=== PATIENT | male | born 1985 | race Two or more races ===

== ENCOUNTER 2023-06-22 22:52 | Observation (INO) ==
[2023-06-22 23:49] LABS: BASOPHILS % (AUTO) 0.5 % (0.2-1.0); EOSINOPHILS # (AUTO) 0.2 x10^3/uL (0.0-0.2); LYMPHOCYTES # (AUTO) 1.1 X10^3/uL (1.3-2.9)
[2023-06-22 23:57] LABS: ALBUMIN 3.8 g/dL (3.4-5.0); BLOOD UREA NITROGEN 7 mg/dL (7-18); CHLORIDE 96 mmol/L (98-107); COR NA(FOR HYPERGLY) 131 mmol/L (136-145); GLUCOSE 210 mg/dL (65-99); LIPASE 46 Units/L (16-77); POTASSIUM 3.9 mmol/L (3.5-5.1); SODIUM 128 mmol/L (136-145); eGFR NON BLACK RACES > 60 (>60)
[2023-06-23 00:12] LABS: BASOPHILS # (AUTO) 0.1 X10^3/uL (0.0-0.1); EOSINOPHILS % (AUTO) 1.6 % (0.9-2.9); HEMATOCRIT 41.2 % (42.0-54.0); HEMOGLOBIN 14.7 g/dL (13.5-18.0); LYMPHOCYTES % (AUTO) 10.4 % (21.0-51.0); MEAN CORPUSCULAR HEMOGLOBIN 32.6 pg (27.0-34.0); MEAN CORPUSCULAR HGB CONC 38.2 g/dL (33.0-35.0); MEAN CORPUSCULAR VOLUME 85.4 fL (80.0-100.0); MEAN PLATELET VOLUME 8.1 fL (7.4-11.0); MONOCYTES # (AUTO) 0.5 x10^3/uL (0.3-0.8); MONOCYTES % (AUTO) 4.4 % (0.0-13.0); NEUTROPHILS # (AUTO) 9.2 x10^3/uL (2.2-4.8); NEUTROPHILS % (AUTO) 83.1 % (42.0-75.0); PLATELET COUNT 298 X10^3/uL (150.0-450.0); RED BLOOD COUNT 4.82 X10^6/uL (4.7-6.0); RED CELL DISTRIBUTION WIDTH 12.8 % (11.6-16.5); WHITE BLOOD COUNT 11.1 X10^3/uL (3.6-10.0)
[2023-06-23 00:46] LABS: CARBON DIOXIDE 19.5 mmol/L (21-32)
[2023-06-23 00:47] LABS: CREATININE 0.27 mg/dL (0.70-1.30)
[2023-06-23 00:48] LABS: CALCIUM 8.6 mg/dL (8.5-10.1)
[2023-06-23 00:49] LABS: ALANINE AMINOTRANSFERASE 12 Units/L (12-78); ALKALINE PHOSPHATASE 107 Units/L (46-116); ASPARTATE AMINO TRANSFERASE < 6 Units/L (15-37)
[2023-06-23 00:50] LABS: TOTAL PROTEIN 8.7 g/dL (6.4-8.2)
[2023-06-23] MEDS ORDERED: TORADOL 30 MG VIAL IVP STA (00:50)
[2023-06-23] MEDS ORDERED: ZOFRAN INJ 4 MG VIAL IVP ONE (00:53)
--- NOTE | 2023-06-23 00:53 | DR.EXTPAIN ---
HPI Time seen Time Seen by Provider: 06/23/23 00:50 PCP Primary Care Physician: NONE HPI Comment HPI Comment: began this morning ,sudden in onset localzed to right upper quadrant associated with nausea.Not has had similar problem before .Has had no fever or chills .not sure whether it is related to food Complaint/Symptoms Chief Complaint Doctor Comments: abdominal pain Chief Complaint:: PT STATES" HE WOKE UP THIS MORNING AND HIS EPIGASTIC AREA WAS HURTING 8/10" HE STATES IT RADIATES UNDER HIS RIGHT RIB. Self Treatment fo Chief Complaint: NONE COVID-19 Coronavirus risk:travel/contact w/high risk person: No Has patient experienced Coronavirus symptoms: No Nurses notes reviewed Nurses Notes Review: Yes Source History Provided: Patient Mode of arrival Mode of Arrival: Ambulatory Timing Onset of Chief Complaint: 06/22/23 Context History of: None PMH PMH Past Medical History: Yes Past Medical History Comment: "WOUNDS" Past Surgical History: No Family History History of Family Medical Conditions: No Social History Type of Tobacco Use: None Alcohol Use: DAILY Do you use any recreational Drugs:: No Lives With: Family Lives Where: Home Travel Risk Coronavirus risk:travel/contact w/high risk person: No Has patient experienced Coronavirus symptoms: No Infectious screening In the last 2 months have you had wt loss of >10#?: NO Have you had fever, night sweats or hemotysis?: No Have you traveled outside the country in the last 6 months?: No Isolation: Standard ROS Review of Systems Constitutional: No Symptoms Reported Eyes: No Symptoms Reported ENTM: No Symptoms Reported Respiratoy: No Symptoms Reported Cardiovascular: No Symptoms Reported Gastrointestinal/Abdominal: Abdominal Pain and Nausea Genitourinary: No Symptoms Reported Neurological: No Symptoms Reported Musculoskeletal: No Symptoms Reported Integumentary: No Symptoms Reported PE Vital Signs Vitals: Vital Signs Temperature 98.2 F Pulse Rate 90 Respiratory Rate 20 Respiratory Rate 20 Respiratory Rate 20 Blood Pressure 131/80 O2 Sat by Pulse Oximetry 96 General Limitations: Language Barrier General Appearance: Alert, Anxious and In Distress Head Head Exam: Normal Inspection, Atraumatic and Normocephalic Eyes Eye exam: Normal Appearance and PERRL ENT ENT Exam: Normal Exam, Normal Oropharynx and Mucous Membranes Moist Neck Neck Exam: Normal Inspection and Full ROM Chest Chest Inspection: Normal Inspection and Symmetric Chest Wall Rise Respiratory Respiratory Exam: Normal Lung Sounds Bilat Respiratory Exam: Bilateral: Clear to Auscultation Cardiovascular Cardiovascular Exam: +S1 and +S2 Abdominal Exam Abdominal Exam: Normal Bowel Sounds, Soft and Tenderness Abdominal Tenderness: RUQ and Other (midabdomen) Neurological Neurological Exam: Alert Skin Skin Exam: Normal Color MDM Differential Diagnosis Differential Diagnosis: Other (right upper quadrant pain) COURSE Treatment Treatment: cbc.cmp.lipase,ct abdomen and pelvis ,IV toradol,iv zofran Reevaluation 1st: Unchanged ROR Labs Reviewed Laboratory Results Reviewed?: Yes 06/22/23 23:36 06/22/23 23:36 Laboratory: WBC 11.1 X10^3/uL (3.6-10.0) H 06/22/23 23:36 RBC 4.82 X10^6/uL (4.7-6.0) 06/22/23 23:36 Hgb 14.7 g/dL (13.5-18.0) 06/22/23 23:36 Hct 41.2 % (42.0-54.0) L 06/22/23 23:36 MCV 85.4 fL (80.0-100.0) 06/22/23 23:36 MCH 32.6 pg (27.0-34.0) 06/22/23 23:36 MCHC 38.2 g/dL (33.0-35.0) H 06/22/23 23:36 RDW 12.8 % (11.6-16.5) 06/22/23 23:36 Plt Count 298 X10^3/uL (150.0-450.0) 06/22/23 23:36 MPV 8.1 fL (7.4-11.0) 06/22/23 23:36 Neut % (Auto) 83.1 % (42.0-75.0) H 06/22/23 23:36 Lymph % (Auto) 10.4 % (21.0-51.0) L 06/22/23 23:36 [place] % (Auto) 4.4 % (0.0-13.0) 06/22/23 23:36 Eos % (Auto) 1.6 % (0.9-2.9) 06/22/23 23:36 Baso % (Auto) 0.5 % (0.2-1.0) 06/22/23 23:36 Neut # (Auto) 9.2 x10^3/uL (2.2-4.8) H 06/22/23 23:36 Lymph # (Auto) 1.1 X10^3/uL (1.3-2.9) L 06/22/23 23:36 [place] # (Auto) 0.5 x10^3/uL (0.3-0.8) 06/22/23 23:36 Eos # (Auto) 0.2 x10^3/uL (0.0-0.2) 06/22/23 23:36 Baso # (Auto) 0.1 X10^3/uL (0.0-0.1) 06/22/23 23:36 Absolute Nucleated RBC 0.1 /100WBC 06/22/23 23:36 Sodium 128 mmol/L (136-145) L 06/22/23 23:36 Corrected Sodium 131 mmol/L (136-145) L 06/22/23 23:36 Potassium 3.9 mmol/L (3.5-5.1) 06/22/23 23:36 Chloride 96 mmol/L (98-107) L 06/22/23 23:36 Carbon Dioxide 19.5 mmol/L (21-32) L 06/22/23 23:36 BUN 7 mg/dL (7-18) 06/22/23 23:36 Creatinine 0.27 mg/dL (0.70-1.30) L 06/22/23 23:36 Est GFR (MDRD) Af Amer > 60 (>60) 06/22/23 23:36 Est GFR (MDRD) Non-Af > 60 (>60) 06/22/23 23:36 Glucose 210 mg/dL (65-99) H 06/22/23 23:36 Hemoglobin A1c 7.6 % 06/22/23 23:36 Calcium 8.6 mg/dL (8.5-10.1) 06/22/23 23:36 Corrected Calcium TNP 06/22/23 23:36 Total Bilirubin 1.40 mg/dL (0.2-1.0) H 06/22/23 23:36 Direct Bilirubin < 0.05 mg/dL (0-0.2) 06/22/23 23:36 AST < 6 Units/L (15-37) L 06/22/23 23:36 ALT 12 Units/L (12-78) 06/22/23 23:36 Alkaline Phosphatase 107 Units/L (46-116) 06/22/23 23:36 Total Protein 8.7 g/dL (6.4-8.2) H 06/22/23 23:36 Albumin 3.8 g/dL (3.4-5.0) 06/22/23 23:36 Globulin 4.9 g/dL (2.5-4.5) H 06/22/23 23:36 Albumin/Globulin Ratio 0.8 Ratio (1.1-2.1) L 06/22/23 23:36 Triglycerides 1799 mg/dL (0-150) H 06/22/23 23:36 Cholesterol 220 mg/dL (0-200) H 06/22/23 23:36 LDL Cholesterol, Calc -160 mg/dL (0-100) L 06/22/23 23:36 HDL Cholesterol 20 mg/dL (40-60) L 06/22/23 23:36 Cholesterol/HDL Ratio 11.0 (0.0-5.0) H 06/22/23 23:36 Lipase 46 Units/L (16-77) 06/22/23 23:36 Opioid Opioid Risk Tool Age (Fabricio box if 16-45): Yes History of Preadolescent Sexual Abuse: No Total: 1 Total Score Risk Category: Low Risk Copyright: Joshua CORNEJO predicting aberrant behaviors Discharge Plan Diagnosis Discharge Problem: Acute pancreatitis, Hypertriglyceridemia, DM type 2 (diabetes mellitus, type 2) Discharge Plan Patient Disposition: ADMITTED INPATIENT Condition: Stable Prescriptions: No Action [facility] Concerns: Post Hospitalization: new medications and changes needed to prevent readmission or further decline. Pt educated and given instructions on all concerns. Plan of Treatment: Continue with present treatment and follow up plan. Pt is to keep follow up appointment as instructed and take medications as ordered. Orders to Discharge Patient Discharge Orders: Transfer (Routine); Ordered 06/23/23 Ordered By: Jaswant Burns Follow ups/Referrals Follow ups/Referrals: [facility],None [Primary Care Provider] - 3 days Instructions Instructions: Acute Pancreatitis, [id number] ADDITIONAL NOTES Additional Notes Additional Notes: ct scan inflammed pancrease,TG 1799.A1C 7.6.spoke with Dr Mendez agreed to ahve patient admitted for the maangement of acute pancreatitis
[2023-06-23] MEDS ORDERED: NS 100 ML IV 100 ML ONE (00:54)
[2023-06-23] MEDS ORDERED: OMNIPAQUE 350 mg/mL 100 mL BTL 100 ML ONE (00:54)
[2023-06-23] MEDS ORDERED: TORADOL 30 MG VIAL ONE ×2 (01:39→06:51)
[2023-06-23] MEDS ORDERED: ZOFRAN INJ 4 MG VIAL ONE (01:39)
--- NOTE | 2023-06-23 02:05 | CT ---
EXAM:ABDCMEN/PELVIS WITH CONHISTORY:RUQ PAIN; PT STATES" HE WOKE UP THIS MORNING AND HIS EPIGASTIC AREA WAS HURTING 8/10" HE STATES IT RADIATES UNDER HIS RIGHT RIB. ; 350 OMNIPAQUE, 100 MLCOMPARISON:NoneTECHNIQUE:Multiple axial images of the abdomen and pelvis were obtained from the lung bases to the pubic symphysis after the administration of IV contrast. Dose reduction techniques including Automated Exposure Control (AEC) and adjustment of mA and kV were utilized.FINDINGS:Included lung bases show scattered atelectasis/scarring. Liver, gallbladder, spleen, adrenal glands, kidneys show no acute appearing finding. There is stranding surrounding the pancreas head and proximal body and adjacent SMV. The SMV and portal vein appear patent. No bowel obstruction or overt inflammation. Normal appendix. Urinary bladder grossly unremarkable. No visible ascites, lymphadenopathy, or pneumoperitoneum. No acute osseous finding. Chronic L5 pars defects.IMPRESSION:Evidence of acute pancreatitis. No suggestion of fluid collection or necrosis on this exam.THIS IS AN ELECTRONICALLY VERIFIED FINAL REPORT06/23/2023 2:02 AM - Electronically signed by David Vogt MD
[2023-06-23] MEDS ORDERED: NS 1,000 ML IV 1,000 ML IV ONE (02:22)
[2023-06-23] MEDS ORDERED: NS 1,000 ML IV 1,000 ML ONE ×2 (02:25→04:25)
[2023-06-23] MEDS ORDERED: NS 1,000 ML IV 1,000 ML IV SCH ×2 (05:00→08:14)
[2023-06-23] MEDS ORDERED: TORADOL 30 MG VIAL IVP ONE (06:51)
[2023-06-23] MEDS ORDERED: TORADOL 30 MG VIAL IVP PRN (08:14)
[2023-06-23] MEDS ORDERED: ZOFRAN INJ 4 MG VIAL IVP PRN (08:14)
[2023-06-23] MEDS: TRICOR TAB 145 MG PO SCH (08:59)
[2023-06-23 09:54] VITALS: BMI 33.5
[2023-06-23] MEDS ORDERED: NovoLIN R (or HumuLIN R) SUBCUT PRN (11:03)
[2023-06-23] MEDS ORDERED: NORCO 7.5/325 MG TAB PO PRN (11:17)
[2023-06-23] MEDS ORDERED: MORPHINE SULFATE INJ 2 MG INJ IVP PRN (11:19)
[2023-06-23] MEDS: MORPHINE SULFATE INJ 2 MG INJ IVP PRN ×2 (15:02→19:43)
[2023-06-23] MEDS: NS 1,000 ML IV 1,000 ML IV SCH ×2 (15:02→22:28)
--- NOTE | 2023-06-23 18:37 | DR.H&P ---
H&P History & Physical for Day of: H&P Date: 06/23/23 Chief Complaint Chief Complaint: Epigastric pain Allergies Allergies Allergy/AdvReac Type Severity Reaction Status Date / Time No Known Allergies Allergy Verified 06/23/23 04:19 History of Present Illness History of Present Illness: This is a pleasant 37-year-old who does not speak Japanese. We do have a clamp remover present. The patient states when he woke yesterday morning was having epigastric pain. Got worse through the day and rating to the right upper quadrant. He later can [facility] emergency department and workup there showed that he had pancreatitis by CT scan. His lipase is normal and we do not have amylase. He is tender to epigastrium and his triglycerides were over 1500. He likely is tender secondary to hypertriglyceridemia. 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 We started him on Tricor 145 mg in the emergency department and giving him IV fluid and pain control at this time. Repeat routine labs and amylase and lipase in the morning. Social History Does patient currently use any type of tobacco product: No Have you used tobacco products in the last 12 months: No Type of Tobacco Use: None Does any household member use tobacco: No Alcohol Use: Occasionally Drug Use: None Medications Home Medications: Home Medications Medication Instructions Recorded Confirmed Type NK 06/23/23 06/23/23 History Labs 06/22/23 23:36 06/22/23 23:36 Labs: Laboratory WBC 11.1 X10^3/uL (3.6-10.0) H 06/22/23 23:36 RBC 4.82 X10^6/uL (4.7-6.0) 06/22/23 23:36 Hgb 14.7 g/dL (13.5-18.0) 06/22/23 23:36 Hct 41.2 % (42.0-54.0) L 06/22/23 23:36 MCV 85.4 fL (80.0-100.0) 06/22/23 23:36 MCH 32.6 pg (27.0-34.0) 06/22/23 23:36 MCHC 38.2 g/dL (33.0-35.0) H 06/22/23 23:36 RDW 12.8 % (11.6-16.5) 06/22/23 23:36 Plt Count 298 X10^3/uL (150.0-450.0) 06/22/23 23:36 MPV 8.1 fL (7.4-11.0) 06/22/23 23:36 Neut % (Auto) 83.1 % (42.0-75.0) H 06/22/23 23:36 Lymph % (Auto) 10.4 % (21.0-51.0) L 06/22/23 23:36 [place] % (Auto) 4.4 % (0.0-13.0) 06/22/23 23:36 Eos % (Auto) 1.6 % (0.9-2.9) 06/22/23 23:36 Baso % (Auto) 0.5 % (0.2-1.0) 06/22/23 23:36 Neut # (Auto) 9.2 x10^3/uL (2.2-4.8) H 06/22/23 23:36 Lymph # (Auto) 1.1 X10^3/uL (1.3-2.9) L 06/22/23 23:36 [place] # (Auto) 0.5 x10^3/uL (0.3-0.8) 06/22/23 23:36 Eos # (Auto) 0.2 x10^3/uL (0.0-0.2) 06/22/23 23:36 Baso # (Auto) 0.1 X10^3/uL (0.0-0.1) 06/22/23 23:36 Absolute Nucleated RBC 0.1 /100WBC 06/22/23 23:36 Sodium 128 mmol/L (136-145) L 06/22/23 23:36 Corrected Sodium 131 mmol/L (136-145) L 06/22/23 23:36 Potassium 3.9 mmol/L (3.5-5.1) 06/22/23 23:36 Chloride 96 mmol/L (98-107) L 06/22/23 23:36 Carbon Dioxide 19.5 mmol/L (21-32) L 06/22/23 23:36 BUN 7 mg/dL (7-18) 06/22/23 23:36 Creatinine 0.27 mg/dL (0.70-1.30) L 06/22/23 23:36 Est GFR (MDRD) Af Amer > 60 (>60) 06/22/23 23:36 Est GFR (MDRD) Non-Af > 60 (>60) 06/22/23 23:36 Glucose 210 mg/dL (65-99) H 06/22/23 23:36 POC Glucose (mg/dL) 118 mg/dL (65-99) H 06/23/23 16:45 Hemoglobin A1c 7.6 % 06/22/23 23:36 Calcium 8.6 mg/dL (8.5-10.1) 06/22/23 23:36 Corrected Calcium TNP 06/22/23 23:36 Total Bilirubin 1.40 mg/dL (0.2-1.0) H 06/22/23 23:36 Direct Bilirubin < 0.05 mg/dL (0-0.2) 06/22/23 23:36 AST < 6 Units/L (15-37) L 06/22/23 23:36 ALT 12 Units/L (12-78) 06/22/23 23:36 Alkaline Phosphatase 107 Units/L (46-116) 06/22/23 23:36 Total Protein 8.7 g/dL (6.4-8.2) H 06/22/23 23:36 Albumin 3.8 g/dL (3.4-5.0) 06/22/23 23:36 Globulin 4.9 g/dL (2.5-4.5) H 06/22/23 23:36 Albumin/Globulin Ratio 0.8 Ratio (1.1-2.1) L 06/22/23 23:36 Triglycerides 1799 mg/dL (0-150) H 06/22/23 23:36 Cholesterol 220 mg/dL (0-200) H 06/22/23 23:36 LDL Cholesterol, Calc -160 mg/dL (0-100) L 06/22/23 23:36 HDL Cholesterol 20 mg/dL (40-60) L 06/22/23 23:36 Cholesterol/HDL Ratio 11.0 (0.0-5.0) H 06/22/23 23:36 Lipase 46 Units/L (16-77) 06/22/23 23:36 Review of Systems Constitutional: No Symptoms Reported Eyes: No Symptoms Reported ENT: No Symptoms Reported Respiratory: No Symptoms Reported Cardiovascular: No Symptoms Reported Gastrointestinal: Abdominal Pain Genitourinary: No Symptoms Reported Musculoskeletal: No Symptoms Reported Skin: No Symptoms Reported Neurological: No Symptoms Reported Physical Exam Vital Signs: Vital Signs Temperature 98.6 F Temperature 97.8 F Pulse Rate [Left] 73 Pulse Rate [Left] 68 Respiratory Rate 18 Respiratory Rate 18 Respiratory Rate 18 Respiratory Rate 18 Respiratory Rate 18 Respiratory Rate 18 Blood Pressure [Right Arm] 153/78 Blood Pressure [Right Arm] 131/70 O2 Sat by Pulse Oximetry 96 O2 Sat by Pulse Oximetry 97 Oriented: Normal, Time, Person and Place Eyes: Normal Ear: Normal Nose: Normal Respiratory: Clear Throughout Cardiovascular: Normal Auscultation: Bowel Sounds: Normal Palpation: Normal Tenderness: RUQ and Epigastric Skin: Normal Musculoskeletal: Normal Psychiatric: Normal Mood Description: Calm Affect: Normal Speech Pattern: Clear Assessment/Plan (1) Acute pancreatitis: Status: Acute Plan: N.p.o., IV fluid, pain control and starting Tricor since the patient's triglycerides are over 1500. Repeat routine labs and amylase and lipase tomorrow morning. (2) Hypertriglyceridemia: Status: Acute Plan: Tricor 145 mg daily. (3) DM type 2 (diabetes mellitus, type 2): Status: Acute Plan: The patient is newly diagnosed diabetic coming in. We will start him on insulin per sliding scale. Review H&P Reviewed: Yes Patient was examined?: Yes
[2023-06-23] MEDS ORDERED: SNACK - Diabetic Appropriate PO SCH (20:00)
[2023-06-23 20:19] VITALS: RESP 20
[2023-06-24] MEDS: NS 1,000 ML IV 1,000 ML IV SCH (05:50)
[2023-06-24 06:20] LABS: BASOPHILS % (AUTO) 0.2 % (0.2-1.0); EOSINOPHILS # (AUTO) 0.1 x10^3/uL (0.0-0.2); EOSINOPHILS % (AUTO) 1.9 % (0.9-2.9); HEMATOCRIT 33.8 % (42.0-54.0); HEMOGLOBIN 11.8 g/dL (13.5-18.0); LYMPHOCYTES # (AUTO) 1.4 X10^3/uL (1.3-2.9); LYMPHOCYTES % (AUTO) 19.6 % (21.0-51.0); MEAN CORPUSCULAR VOLUME 85.9 fL (80.0-100.0); MEAN PLATELET VOLUME 8.1 fL (7.4-11.0); MONOCYTES # (AUTO) 0.5 x10^3/uL (0.3-0.8); MONOCYTES % (AUTO) 6.7 % (0.0-13.0); NEUTROPHILS # (AUTO) 5.1 x10^3/uL (2.2-4.8); NEUTROPHILS % (AUTO) 71.6 % (42.0-75.0); PLATELET COUNT 188 X10^3/uL (150.0-450.0); RED BLOOD COUNT 3.94 X10^6/uL (4.7-6.0); WHITE BLOOD COUNT 7.1 X10^3/uL (3.6-10.0)
[2023-06-24 06:35] LABS: ALANINE AMINOTRANSFERASE 29 Units/L (12-78); ALKALINE PHOSPHATASE 71 Units/L (46-116); AMYLASE 42 Units/L (25-115); ASPARTATE AMINO TRANSFERASE 12 Units/L (15-37); BLOOD UREA NITROGEN 6 mg/dL (7-18); CALCIUM 7.8 mg/dL (8.5-10.1); CARBON DIOXIDE 25.3 mmol/L (21-32); CHLORIDE 104 mmol/L (98-107); COR CA(FOR HYPOALB) 8.6 mg/dL (8.5-10.1); CREATININE 0.79 mg/dL (0.70-1.30); GLUCOSE 104 mg/dL (65-99); LIPASE 31 Units/L (16-77); POTASSIUM 3.6 mmol/L (3.5-5.1); SODIUM 138 mmol/L (136-145); TOTAL PROTEIN 7.1 g/dL (6.4-8.2); eGFR NON BLACK RACES > 60 (>60)
[2023-06-24] MEDS ORDERED: CONSULT PHARMACY - POTASSIUM & MAGNESIUM XX SCH (07:00)
[2023-06-24] MEDS: TRICOR TAB 145 MG PO SCH (08:57)
[2023-06-24] MEDS ORDERED: K-DUR TAB 20 MEQ PO SCH (09:00)
[2023-06-24 13:15] VITALS: BP 128/81; PULSE 60; TEMP 97.7; O2SAT 97
== END 2023-06-24 14:15 | disposition home or self-care (01) ==
LOC: MED/SURG 22:56 → ER 22:56 → MED/SURG 06-23 07:58
PROVIDERS: ADMIT Family Medicine; ATTEND Family Medicine
DX: Z59.87 Material hardship due to limited financial resources, not elsewhere classified; E11.65 Type 2 diabetes mellitus with hyperglycemia; E87.1 Hypo-osmolality and hyponatremia; K85.80 Other acute pancreatitis without necrosis or infection; Z59.41 Food insecurity; Z59.86 Financial insecurity; R10.13 Epigastric pain; E78.1 Pure hyperglyceridemia